=== PATIENT | female | born 1970 | race African-American/Black ===

== ENCOUNTER 2018-02-18 10:26 | Emergency (ER) | payer OTHER ==
[~2018-02-18] VITALS: Ht 167.6 cm; Wt 91.4 kg
[~2018-02-18 10:26] MED LIST: ANTIVERT25 MG PO; AUGMENTIN875 MG PO; MOTRIN800 MG PO; MULTI-DAY VITA1 EACH PO; NORCO 7.5/321 TABLET PO; NYQUIL D COLD295 ML PO; PEN-VEE K,VEET500 MG PO; ZITHROMAX500 MG PO
[2018-02-18 10:31] VITALS: BP 128/88
[2018-02-18] MEDS ORDERED: ULTRAM50 MG PO (11:15)
[2018-02-18] MEDS ORDERED: PEN-VEE K,VEET500 MG PO (11:15)
== END 2018-02-18 11:56 | disposition home or self-care (01) ==
LOC: EME 10:26
DX: K04.7 Periapical abscess without sinus (principal); F17.200 Nicotine dependence, unspecified, uncomplicated
CPT/HCPCS: 99281; 99284